=== PATIENT | female | born 1960 | race African-American/Black ===

== ENCOUNTER 2019-06-03 09:59 | Emergency (ER) | payer OTHER ==
[~2019-06-03] VITALS: Ht 167.6 cm; Wt 61.2 kg
[2019-06-03 10:03] VITALS: BP 166/63
== END 2019-06-03 10:40 | disposition home or self-care (01) ==
LOC: ER 09:59
DX: H11.31 Conjunctival hemorrhage, right eye (principal); Z88.1 Allergy status to other antibiotic agents; Z88.2 Allergy status to sulfonamides